=== PATIENT | female | born 1990 | race Caucasian/White ===

== ENCOUNTER 2024-12-21 10:55 | Outpatient (AMB) | payer BC, SELFPAY ==
--- NOTE | 2024-12-21 11:10 | GYNCLNT_ITS ---
Vital Signs 12/21/24 11:20 Height 1.57 m Height Method Stated Weight 64.467 kg Weight Measurement Method Standing Scale BMI 25.9 BP 124/78 Blood Pressure Source Automatic Cuff Blood Pressure Location Left Upper Arm Position Sitting Respiration 18 Pulse 90 Pulse Source Monitor Temp 98.4 F Temp Source Oral Pulse Oximetry (%) 99 Oxygen Delivery Method Room Air Allergies/Home Meds Allergies & Medications Allergies No Known Allergies Allergy (Verified 12/21/24 11:21) Medication Reconciliation No Known Home Medications 12/21/24 [History Confirmed 12/21/24] Intake Visit Data Collection New Patient or Established: New Patient (never been to [facility]) Reason for Visit:: ANNUAL WELLNESS Seen by Clinical Staff ONLY (RN/MA): No 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 Required: No Do You Feel Safe at Home: Yes Authorities Contacted: N/A PCP or OBGYN visit in last 3 months: No Hx Now: No Are you currently on any form of Control: No Last menstrual period: 12/02/24 Pain Present Currently: No Pain Scale Used: Daugherty-Landeros/Numerical Pain scale:: 0 Smoking Status Smoking Status: Never smoker [employer] T[employer] 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 She is called off work secondary to pain. She states during her 2017 the doctor told her she should not have any more babies as there was a large amount of scar tissue present. She has not had a pelvic ultrasound. She does not like how she feels on control pills and they caused increased acne. She does not want any more children and is interested in information about a hysterectomy. 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 Questionnaires Covid-19 Vaccine Questionnaire Has patient been vacinated for Covid-19 Have you been vacinated for Covid-19: Yes PHQ-9 PHQ-2 Over the last 2 weeks, how often have you been bothered by any of the following problems? 1. Little interest or pleasure in doing things: not at all 2. Feeling down, depressed, or hopeless: not at all Total score: 0 PHQ-9 3. Trouble falling or staying asleep, or sleeping too much: Not at all 4. Feeling tired or having little energy: Not at all 5. Poor appetite or overeating: Not at all 6. Feeling bad about yourself - or that you are a failure or have let yourself or your family down: Not at all 7. Trouble concentrating on things, such as reading the newspaper or watching television: Not at all 8. Moving or speaking so slowly that other people could have noticed? - Or the opposite - being so fidgety or restless that you have been moving around a lot more than usual: not at all 9. Thoughts that you would be better off or of hurting yourself in some way: Not at all Total score: 0 Source: Developed by Drs. Babatunde Plascencia, Hailey Whitmore, Stewart Barahona and colleagues, with an educational krishan from [employer]. 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 She used to see Dr. Potts but admits she has not had a Pap smear in a a while. She is sexually active using rhythm method for contraception. They do not desire any more children. She states her cycles have gotten extremely painful especially over the last 7 months. She states she calls in to work often on her cycle and she can go through 1200 to 1400 mg of ibuprofen daily during her cycle due to the cramps and back and back pain. Her cycles are also very heavy. She has not had an ultrasound yet for workup. She was told during her last that she should not have any more children as there was apparently a large amount of scar tissue present. I do not have any past op rep orts to review today. Patient would like a Pap she is interested in hearing about a hysterectomy she states they are definitely done having children. 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 She does report painful intercourse and extremely painful cycles. Menstrual character: abnormally heavy Gynecologic pain symptoms: Reports dysmenorrhea, dyspareunia and pelvic pressure Menopause concerns/symptoms: Reports none Other pertinent information: History of x 2-second 1 with a large amount of scar tissue present Review of Systems Genitourinary Genitourinary: Reports dysmenorrhea and Reports dyspareunia Exam General General Appearance: alert, in no apparent distress, comfortable, cooperative, healthy appearing, well developed and well groomed Neck Neck exam: Present normal inspection, full ROM and trachea midline Chest Chest inspection: Present normal inspection and symmetric chest wall rise Resp Respiratory exam: Present normal lung sounds bilaterally Card Cardiovascular exam: Present regular rate, normal rhythm and normal heart sounds Abdominal Abdominal exam: Present soft and normal bowel sounds External exam: Present normal external exam Speculum exam: Present normal speculum exam and other (Difficult speculum exam secondary to patient discomfort and cervix extremely high in vagina) Bimanual exam: Present uterine enlargement (Uterus feels enlarged and fixed to the patient's anterior abdominal wall. No pain upon palpating the uterosacral ligaments) and uterine tenderness Extremities Extremities exam: Present normal inspection and full ROM Psych Psychiatric exam: Present normal affect and normal mood Skin Skin exam: Present warm, dry, intact and normal color Office Procedures OB Clinic LOC & Office Proc's Nursing/Assessment Patient Status: Initial/New Patient OB Clinic Nursing Assessment: Medication Reconciliation, Update PMH in EMR and Vital Signs OB Clinic Coordination of Care: Complex Care and Chronic Disease 1-5, Consent,records obtained, informed consent, Education Simp Pt/Fam, Lab and Imaging orders and Staff clarify orders Miscellaneous Interventions: Breast Exam and Pelvic/Pap Smear Set up New Patient Charge New Patient Point Assignment: [id number] New Patient Point Charge: [employer] Level 4 ([id number]) In Clinic Procedures Pap Smear: Yes Assessment & Plan Diagnosis / Problem List (1) Encounter for Routine Gynecological Examination: Qualifiers: Gynecological examination findings: abnormal findings PRESENT Qualified Code(s): Z01.411 - Encounter for gynecological examination (general) (routine) with abnormal findings Assessment and Plan: Uterus feels fixed and tender. Check stat pelvic ultrasound (2) Dysmenorrhea: Status: Acute Assessment and Plan: Check pelvic ultrasound. Probable adenomyosis and/or endometriosis. Plan will be to refer to Dr. Olivares in [place] for a robotic hysterectomy. Will put this referral in today. 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
[2024-12-21 11:20] VITALS: BP 124/78; PULSE 90; RESP 18; TEMP 36.9; O2SAT 99; BMI 25.9
== END 2024-12-21 11:45 | disposition home or self-care (01) ==
LOC: HODSOBC 10:55
PROVIDERS: PCP Internal Medicine; Referring Provider Internal Medicine; Supervising Provider Obstetrics & Gynecology; Visit Provider Obstetrics & Gynecology
DX: Z01.411 Encounter for gynecological examination (general) (routine) with abnormal findings (principal); Z11.51 Encounter for screening for human papillomavirus (HPV); N85.2 Hypertrophy of uterus; N94.6 Dysmenorrhea, unspecified; N92.4 Excessive bleeding in the premenopausal period
CPT/HCPCS: 99204; Q0091; G0463

== ENCOUNTER → 2024-12-21 | Outpatient (CLI) | payer BC, SELFPAY ==
--- NOTE | 2024-12-21 | XR_ITS ---
Examination: Pelvic ultrasound, transabdominal, complete Technique: Transabdominal ultrasound of the pelvis performed using grayscale imaging Date and time of exam: December 21, 2024 1251 hours INDICATIONS: Pelvic pain and vaginal bleeding beginning 7 months ago FINDINGS: Uterus 12.2 cm endometrial stripe 4.7 cm with free fluid in the endometrium No intrauterine gestation Right ovary obscured by bowel gas Left ovary 2.2 cm arterial flow 12 mm follicular cyst IMPRESSION: Thickened heterogeneous endometrium, consider retained products of conception, suggest transvaginal pelvic sonography follow-up
== END | disposition home or self-care (01) ==
PROVIDERS: PCP Internal Medicine; Referring Provider Obstetrics & Gynecology; Visit Provider Obstetrics & Gynecology
DX: R93.89 Abnormal findings on diagnostic imaging of other specified body structures (principal)
CPT/HCPCS: 76856

== ENCOUNTER 2025-03-17 10:02 | Outpatient (AMB) | payer BC, SELFPAY ==
[2025-03-17 10:46] VITALS: BP 113/72; PULSE 73; RESP 14; TEMP 37.3; O2SAT 98; BMI 26.3
--- NOTE | 2025-03-17 10:46 | GYNCLNT_ITS ---
Vital Signs 03/17/25 10:46 Height 1.57 m Height Method Stated Weight 64.864 kg Weight Measurement Method Standing Scale BMI 26.3 BP 113/72 Blood Pressure Source Automatic Cuff Blood Pressure Location Left Upper Arm Position Sitting Respiration 14 Pulse 73 Pulse Source Monitor Temp 99.1 F Temp Source Oral Pulse Oximetry (%) 98 Oxygen Delivery Method Room Air Allergies/Home Meds Allergies & Medications Allergies No Known Allergies Allergy (Verified 03/17/25 10:47) Medication Reconciliation No Known Home Medications 12/21/24 [History Confirmed 03/17/25] Intake Visit Data Collection New Patient or Established: Established Patient (seen at [facility] within 3 years) Reason for Visit:: ULTRASOUND RESULTS Seen by Clinical Staff ONLY (RN/MA): No Technical Services Analyst Required: No Do You Feel Safe at Home: Yes Authorities Contacted: N/A PCP or OBGYN visit in last 3 months: Yes Hx Now: No Are you currently on any form of Control: No Last menstrual period: 02/24/25 Pain Present Currently: No Pain Scale Used: Daugherty-Landeros/Numerical Pain scale:: 0 Smoking Status Smoking Status: Never smoker 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 1. Little interest or pleasure in doing things: not at all 2. Feeling down, depressed, or hopeless: not at all Total score: 0 PHQ-9 3. Trouble falling or staying asleep, or sleeping too much: Not at all 4. Feeling tired or having little energy: Not at all 5. Poor appetite or overeating: Not at all 6. Feeling bad about yourself - or that you are a failure or have let yourself or your family down: Not at all 7. Trouble concentrating on things, such as reading the newspaper or watching television: Not at all 8. Moving or speaking so slowly that other people could have noticed? - Or the opposite - being so fidgety or restless that you have been moving around a lot more than usual: not at all 9. Thoughts that you would be better off or of hurting yourself in some way: Not at all Total score: 0 Source: Developed by Drs. Babatunde Plascencia, Hailey Whitmore, Stewart Barahona and colleagues, with an educational krishan from [employer]. 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 She had an ultrasound 12/21/24 revealing uterus to be 12.2 cm in length with a stripe that is read at 4.7 cm with some free fluid in her endometrial canal. Her right ovary was not seen secondary to bowel gas her left ovary is normal. I looked at the films myself and it looks like she might have an intrauterine fibroid that is about 4.7 cm. Patient is interested in hysterectomy she states that her second she had a lot of scar tissue. She used to be a patient at [facility]. She is interested in pursuing robotic hysterectomy and would probably be a good candidate for Dr. Key to perform this. Patient is amendable to a consult with Dr. Key and we will get her referred on over to him. She does have a sedentary job where she works. She can take 4 weeks off after surgery. Review of Systems Review of Systems Narrative Review of Systems: Patient reports severe dysmenorrhea and back pain. She reports heavy cycles. She denies pelvic pain when she is not on her cycle. No dyspareunia no urinary complaints no incontinence. Exam Narrative Physical exam: Remainder of physical exam deferred as she just had an annual exam performed in December 2024 here at the office. General Limitations: no limitations General Appearance: alert, in no apparent distress, cooperative and well groomed Office Procedures OB Clinic LOC & Office Proc's Nursing/Assessment Patient Status: Established Patient OB Clinic Nursing Assessment: Medication Reconciliation, Update PMH in EMR and Vital Signs OB Clinic Coordination of Care: Complex Care and Chronic Disease 1-5, Consent,records obtained, informed consent, Education Simp Pt/Fam, Lab and Imaging orders, Results/Orders obtained and Staff clarify orders Established Patient Charge Established Patient Point Assignment: 105 Established Patient Point Charge: EP Level 3 (80-115) Assessment & Plan Diagnosis / Problem List (1) Menorrhagia, premenopausal: Status: Acute Plan: Ultrasound reviewed with patient. Patient is interested in pursuing robotic hysterectomy. She has severe dysmenorrhea and what appears to be a 4.7 cm fibroid in her uterus so she is not a candidate for an ablation. Will refer to [place] to Dr. Jhony Key. She just had a Pap and this results was not on the chart so we will call pathology copy of her Pap smear and send it along with her referral and her ultrasound to Dr. Key. (2) Dysmenorrhea: Status: Acute
== END 2025-03-17 12:25 | disposition home or self-care (01) ==
LOC: HODSOBC 10:02
PROVIDERS: PCP Internal Medicine; Referring Provider Internal Medicine; Supervising Provider Obstetrics & Gynecology; Visit Provider Obstetrics & Gynecology
DX: N92.4 Excessive bleeding in the premenopausal period (principal); N94.6 Dysmenorrhea, unspecified
CPT/HCPCS: 99213; G0463